=== PATIENT | female | born 1985 | race Caucasian/White ===

== ENCOUNTER → 2016-12-04 | Outpatient (CLI) | payer OTHER ==
[~2016-12-04] MED LIST: ATOM25CA PO; MESA800T6 PO; PRENTAB26 PO
[2016-12-04 16:51] LABS: URINE APPEARANCE CLEAR (CLEAR); URINE BILIRUBIN NEG (NEG); URINE COLOR YELLOW; URINE NITRITE NEG (NEG); URINE SPECIFIC GRAVITY 1.028 (1.000-1.030); UROBILINOGEN NEG (NEG)
[2016-12-04 16:54] LABS: MANUAL MICROSCOPIC REQUIRED? NO; REVIEW REQ? NO
== END | disposition home or self-care (01) ==
LOC: C.LABSPEC 16:17
PROVIDERS: ATTEND Obstetrics & Gynecology
DX: Z34.01 Encounter for supervision of normal first pregnancy, first trimester (principal)

== ENCOUNTER → 2016-12-11 | Outpatient (CLI) | payer OTHER ==
[~2016-12-11] MED LIST changes: +MESA1TAB4 PO; -MESA800T6 PO; +OXYC-57 PO
[2016-12-11 15:34] LABS: BASO % 0.3 %; BASO ABS # 0.03 K/uL (0-0.2); COMPLETE YES; EOS % 0.9 %; IG% 0.6 %; LYMPH % 22.6 %; MEAN CELL VOLUME 86.6 fL (80-100); MEAN CORPUSCULAR HEMOGLOBIN 30.7 pg (25-34); MEAN CORPUSCULAR HGB CONC 35.4 g/dl (32-36); MEAN PLATELET VOLUME 9.2 fL (7.4-10.4); MONO % 7.9 %; NEUT % 67.7 %; PLATELET COUNT 249 K/uL (130-400); RED BLOOD COUNT 4.04 M/uL (4.2-5.4); WHITE BLOOD COUNT 11.49 K/uL (4.8-10.8)
== END | disposition home or self-care (01) ==
LOC: C.LAB1850 14:38
PROVIDERS: ATTEND Obstetrics & Gynecology
DX: Z34.01 Encounter for supervision of normal first pregnancy, first trimester (principal)

== ENCOUNTER → 2016-12-11 | Outpatient (CLI) | payer OTHER ==
[2016-12-15 09:54] LABS: CHLAMYDIA TRACH RNA*** NOT DETECTED (NOT DETECTED); GC (NEIS GONORRHOEAE)RNA** NOT DETECTED (NOT DETECTED)
== END | disposition home or self-care (01) ==
LOC: C.LABSPEC 17:59
PROVIDERS: ATTEND Obstetrics & Gynecology
DX: Z34.01 Encounter for supervision of normal first pregnancy, first trimester (principal)

== ENCOUNTER → 2016-12-12 | Outpatient (CLI) | payer OTHER | END | disposition home or self-care (01) | LOC: C.PAPS 08:46 | PROVIDERS: ATTEND Obstetrics & Gynecology | DX: Z12.4 Encounter for screening for malignant neoplasm of cervix (principal); R87.616 Satisfactory cervical smear but lacking transformation zone ==

== ENCOUNTER → 2017-02-12 | Outpatient (CLI) | payer OTHER ==
[2017-02-12 18:25] LABS: GTGD 50 Grams
== END | disposition home or self-care (01) ==
LOC: C.LAB1850 15:03
PROVIDERS: ATTEND Obstetrics & Gynecology
DX: Z34.02 Encounter for supervision of normal first pregnancy, second trimester (principal)

== ENCOUNTER → 2017-02-21 | Outpatient (CLI) | payer OTHER | END | disposition home or self-care (01) | LOC: C.LAB 08:00 | PROVIDERS: ATTEND Obstetrics & Gynecology | DX: O28.9 Unspecified abnormal findings on antenatal screening of mother (principal) ==

== ENCOUNTER → 2017-04-29 | Outpatient (CLI) | payer OTHER ==
[~2017-04-29] MED LIST changes: -MESA1TAB4 PO; +MESA800T6 PO; -OXYC-57 PO
[2017-04-29 12:10] LABS: URINE APPEARANCE CLEAR (CLEAR); URINE BILIRUBIN NEG (NEG); URINE COLOR YELLOW; URINE EPITHELIAL CELL AUTO >30 /lpf (0-5); URINE NITRITE NEG (NEG); URINE PH 7.5 (4.5-7.5); URINE SPECIFIC GRAVITY 1.006 (1.000-1.030); UROBILINOGEN NEG (NEG)
[2017-04-29 12:15] LABS: HEMATOCRIT 33.6 % (37-47)
[2017-04-29 12:17] LABS: MANUAL MICROSCOPIC REQUIRED? NO; REVIEW REQ? NO
== END | disposition home or self-care (01) ==
LOC: C.LAB1850 09:32
PROVIDERS: ATTEND Obstetrics & Gynecology
DX: Z34.03 Encounter for supervision of normal first pregnancy, third trimester (principal)

== ENCOUNTER → 2017-05-02 | Outpatient (CLI) | payer OTHER | END | disposition home or self-care (01) | LOC: C.LAB 09:00 | PROVIDERS: ATTEND Obstetrics & Gynecology | DX: Z34.03 Encounter for supervision of normal first pregnancy, third trimester (principal) ==

== ENCOUNTER 2017-05-29 17:02 | Outpatient (CLI) | payer OTHER ==
[~2017-05-29] VITALS: Ht 160 cm; Wt 103.6 kg
[~2017-05-29 17:02] MED LIST changes: -PRENTAB26 PO
[2017-05-29] MEDS ORDERED: PRENTAB26 PO (17:23)
[2017-05-29 17:25] VITALS: Ht 160 cm; Wt 103.6 kg
[2017-05-29] MEDS ORDERED: INFLUENZA VIRUS QUAD VACCINE 0.5 ML SYR IM. ONE (17:45)
[2017-05-29] MEDS ORDERED: INFLUENZA ADMINISTRATION CHARGE ONE (17:45)
[2017-05-29 19:21] LABS: URINE APPEARANCE CLOUDY (CLEAR); URINE BILIRUBIN NEG (NEG); URINE COLOR YELLOW; URINE NITRITE NEG (NEG); URINE PH 6.5 (4.5-7.5); URINE SPECIFIC GRAVITY 1.019 (1.000-1.030); UROBILINOGEN NEG (NEG)
[2017-05-29 19:23] LABS: MANUAL MICROSCOPIC REQUIRED? NO; REVIEW REQ? NO
== END 2017-05-29 19:46 | disposition home or self-care (01) ==
LOC: C.OPB 17:02 → C.LD 17:04 → C.OPB 19:46
PROVIDERS: ATTEND Obstetrics & Gynecology
DX: O26.893 Other specified pregnancy related conditions, third trimester (principal); O99.613 Diseases of the digestive system complicating pregnancy, third trimester; K50.90 Crohn's disease, unspecified, without complications; Z3A.32 32 weeks gestation of pregnancy

== ENCOUNTER → 2017-06-24 | Outpatient (CLI) | payer OTHER ==
[~2017-06-24] MED LIST changes: -ATOM25CA PO; -MESA800T6 PO; +PRENTAB26 PO
== END | disposition home or self-care (01) ==
LOC: C.LABSPEC 15:40
PROVIDERS: ATTEND Obstetrics & Gynecology
DX: Z34.03 Encounter for supervision of normal first pregnancy, third trimester (principal); Z3A.00 Weeks of gestation of pregnancy not specified

== ENCOUNTER 2017-07-25 16:13 | Inpatient (IN) | payer OTHER ==
[~2017-07-25] VITALS: Ht 160 cm; Wt 106.8 kg
[2017-07-25 16:33] VITALS: Ht 160 cm; Wt 106.8 kg
[2017-07-25] MEDS ORDERED: MISOPROSTOL 25 MCG TAB ONE (19:11)
[2017-07-25] MEDS ORDERED: LACTATED RINGER'S 1000ML 500 ML IV PRN ×2 (19:16→20:54)
[2017-07-25] MEDS ORDERED: OXYTOCIN 30 UNITS/500ML NSS IV PRN (19:30)
[2017-07-25] MEDS ORDERED: MISOPROSTOL 25 MCG TAB PV ONE (19:30)
[2017-07-25 19:52] LABS: MEAN CELL VOLUME 87.8 fL (80-100); MEAN CORPUSCULAR HEMOGLOBIN 29.8 pg (25-34); MEAN CORPUSCULAR HGB CONC 33.9 g/dl (32-36); MEAN PLATELET VOLUME 9.1 fL (7.4-10.4); PLATELET COUNT 181 K/uL (130-400); RED BLOOD COUNT 3.76 M/uL (4.2-5.4); WHITE BLOOD COUNT 16.64 K/uL (4.8-10.8)
[2017-07-25] MEDS: LACTATED RINGER'S 1000ML 1,000 ML IV PRN ×2 (19:52→20:51)
[2017-07-25] MEDS ORDERED: BUPIVACAINE 0.25% 30 ML VIAL ONE (19:55)
[2017-07-25] MEDS ORDERED: EpHEDrine SULFATE INJ 50 MG/ML AMP ONE (19:56)
[2017-07-25] MEDS ORDERED: FENTANYL 2MCG/ML ROPIV 1.25MG/ML 100ML BAG EPI ONE (19:56)
[2017-07-25] MEDS ORDERED: FENTANYL CITRATE INJ 50 MCG/1 ML 2 ML VIAL ONE (19:56)
[2017-07-25] MEDS ORDERED: NALOXONE HCL INJ 1 MG in SODIUM CHLORIDE 0.9% 1000ML 1,000 ML IV PRN (20:54)
[2017-07-25] MEDS ORDERED: DiphenhydrAMINE HCL 50 MG/ML VIAL IV PRN (21:00)
[2017-07-25] MEDS ORDERED: PROMETHAZINE HCL INJ 6.25 MG in SODIUM CHLORIDE 0.9% 50ML 50 ML IV PRN (21:00)
[2017-07-25] MEDS ORDERED: NALOXONE HCL INJ 0.4 MG/1 ML VIAL/CARP IV PRN (21:00)
[2017-07-25] MEDS ORDERED: EpHEDrine SULFATE INJ 50 MG/ML AMP IV PRN (21:00)
[2017-07-25] MEDS ORDERED: NALBUPHINE HCL INJ 10 MG/ML AMP IV PRN (21:00)
[2017-07-26] MEDS: ONDANSETRON INJ 2 MG/ML 2 ML VIAL IV PRN ×2 (01:15→13:13)
[2017-07-26] MEDS: FENTANYL 2MCG/ML ROPIV 1.25MG/ML 100ML BAG EPI PRN ×3 (02:25→06:46)
[2017-07-26] MEDS: LACTATED RINGER'S 1000ML 1,000 ML IV SCH ×2 (05:54→10:49)
[2017-07-26] MEDS ORDERED: EpHEDrine SULFATE INJ 50 MG/ML AMP ONE (07:30)
[2017-07-26] MEDS ORDERED: BUPIVACAINE 0.25% 30 ML VIAL ONE ×2 (07:30→13:20)
[2017-07-26] MEDS ORDERED: FENTANYL 2MCG/ML ROPIV 1.25MG/ML 100ML BAG EPI ONE (07:31)
[2017-07-26] MEDS ORDERED: FENTANYL CITRATE INJ 50 MCG/1 ML 2 ML VIAL ONE ×3 (07:31→14:03)
[2017-07-26] MEDS ORDERED: NALOXONE HCL INJ 1 MG in SODIUM CHLORIDE 0.9% 1000ML 1,000 ML IV PRN ×2 (09:11→15:11)
[2017-07-26] MEDS ORDERED: LACTATED RINGER'S 1000ML 500 ML IV PRN ×2 (09:11→15:11)
[2017-07-26] MEDS ORDERED: NALBUPHINE HCL INJ 10 MG/ML AMP IV PRN ×2 (09:15→15:15)
[2017-07-26] MEDS ORDERED: EpHEDrine SULFATE INJ 50 MG/ML AMP IV PRN ×2 (09:15→15:15)
[2017-07-26] MEDS ORDERED: FENTANYL 2MCG/ML ROPIV 1.25MG/ML 100ML BAG EPI PRN (09:15)
[2017-07-26] MEDS ORDERED: DiphenhydrAMINE HCL 50 MG/ML VIAL IV PRN ×3 (09:15→15:15)
[2017-07-26] MEDS ORDERED: ONDANSETRON INJ 2 MG/ML 2 ML VIAL IV PRN ×3 (09:15→15:15)
[2017-07-26] MEDS ORDERED: NALOXONE HCL INJ 0.4 MG/1 ML VIAL/CARP IV PRN (09:15)
[2017-07-26] MEDS ORDERED: CITRIC ACID/SODIUM CITRATE 15 ML UDC ONE (13:28)
[2017-07-26] MEDS ORDERED: CITRIC ACID/SODIUM CITRATE 15 ML UDC PO ONE (13:30)
[2017-07-26] MEDS ORDERED: CEFAZOLIN IV 3,000 MG in SYRINGE 0 ML IV SCH (13:30)
[2017-07-26] MEDS ORDERED: MoRPHine SULFATE PF 1 MG/ML 10 ML AMP/VIAL ONE (14:03)
[2017-07-26] MEDS ORDERED: OXYTOCIN INJ 10 UNITS/ML VIAL ONE (14:50)
[2017-07-26] MEDS ORDERED: KETOROLAC TROMETHAMINE 30 MG/ML VIAL ONE (14:50)
[2017-07-26] MEDS ORDERED: ONDANSETRON INJ 2 MG/ML 2 ML VIAL ONE (14:50)
[2017-07-26] MEDS ORDERED: LACTATED RINGER'S 1000ML 1,000 ML IV SCH (14:59)
[2017-07-26] MEDS ORDERED: OXYTOCIN INJ 30 UNITS in LACTATED RINGER'S 1000ML 1,000 ML IV SCH (14:59)
[2017-07-26] MEDS ORDERED: SUPERCREAM 0.870 % 15GM JAR EXT PRN (15:00)
[2017-07-26] MEDS ORDERED: HYDROCORTISONE ACETATE 25 MG SUPP PR PRN (15:00)
[2017-07-26] MEDS ORDERED: MEPERIDINE HCL 50 MG/ML CARP IV PRN ×2 (15:00)
[2017-07-26] MEDS ORDERED: OXYCODONE/ACETAMINOPHEN 5-325 TAB PO PRN (15:00)
[2017-07-26] MEDS ORDERED: DIPHTHERIA/TETANUS/PERTUSSIS 0.5 ML SYR/VIAL IM. ONE (15:00)
[2017-07-26] MEDS ORDERED: KETOROLAC TROMETHAMINE 30 MG/ML VIAL IV. PRN ×2 (15:00→15:15)
[2017-07-26] MEDS ORDERED: PROMETHAZINE HCL INJ 25 MG in SODIUM CHLORIDE 0.9% 50ML 50 ML IV PRN ×2 (15:00→15:15)
[2017-07-26] MEDS ORDERED: BENZOCAINE 20% AER SPR 82.5 GM CAN EXT PRN (15:00)
[2017-07-26] MEDS ORDERED: LANOLIN OINT EXT PRN ×2 (15:00)
--- NOTE | 2017-07-26 15:02 | [facility] Post Operative Brief Note ---
Immediate Operative Summary Operative Date Jul 26, 2017. Pre-Operative Diagnosis Primary Caesarean Section Post-Operative Diagnosis Primary Caesarean Section Procedure(s) Performed Primary Caesarean Section for living female child at [address] Chanel Radio Technician Surgeon(s) Alee Mcdowell RN Estimated Blood Loss 600 ml Findings thick meconium. Normal tubes/ovaries. Diminutive fibroids. Specimens Placenta- exam arterial/venous cord gases cord blood Complication(s) None Disposition L&D
[2017-07-26] MEDS ORDERED: NALOXONE HCL INJ 0.08 MG in SYRINGE 1.8 ML IV PRN (15:11)
[2017-07-26] MEDS ORDERED: SODIUM CHLORIDE 0.9% 1000ML 1,000 ML IV PRN (15:11)
--- NOTE | 2017-07-26 15:12 | Anesthesia Procedure Note ---
Anesthesia Epidural Removal Nt Date & Time Jul 26, 2017 at 15:12 Vital Signs Pain Intensity: 5.0 Notes Mental Status: alert / awake / arousable, participated in evaluation Nausea / Vomiting: adequately controlled Pain: adequately controlled Airway Patency, RR, SpO2: stable & adequate BP & HR: stable & adequate Hydration State: stable & adequate Neuraxial Anesthesia: was administered Anesthetic Complications: no major complications apparent, pt satisfied with anesthetic care Epidural: removed without complications, with tip intact Notes: Epidural pulled in OR to place SAB for surgical anesthetic
[2017-07-26] MEDS ORDERED: MEPERIDINE HCL 25 MG/ML CARP IV PRN (15:15)
[2017-07-26] MEDS ORDERED: NO NARCOTICS OR SEDATIVES SCH (15:15)
[2017-07-26] MEDS ORDERED: NALOXONE HCL 0.4 MG/1 ML VIAL/CARP IV PRN (15:15)
[2017-07-26] MEDS ORDERED: MoRPHine SULFATE PF 1 MG/ML 10 ML AMP/VIAL EPI PRN (15:15)
[2017-07-26] MEDS ORDERED: MoRPHine SULFATE 2 MG/ML CARP IV PRN (15:15)
--- NOTE | 2017-07-26 15:43 | Anesthesiology Progress Note ---
Anesthesia Post Op Note Date & Time Jul 26, 2017 at 15:42 Vital Signs Pain Intensity: 5.0 Notes Mental Status: alert / awake / arousable, participated in evaluation Pt Amnestic to Procedure: Yes Nausea / Vomiting: adequately controlled Pain: adequately controlled Airway Patency, RR, SpO2: stable & adequate BP & HR: stable & adequate Hydration State: stable & adequate Neuraxial Anesthesia: was administered, sensory block is resolving Anesthetic Complications: no major complications apparent
--- NOTE | 2017-07-26 16:57 | OPERATIVE REPORT ---
DATE OF OPERATION: 07/26/2017 PREOPERATIVE DIAGNOSES: 1. Frances intrauterine at term. 2. heart tones category 2. 3. Inadequate maternal anesthesia after multiple epidurals. 4. Maternal request for section. POSTOPERATIVE DIAGNOSES: Same. PROCEDURE: Primary low transverse section for a living female child at 1431. SURGEON: Faye Chanel MD SKULL SPLITTER: Alee ____, RN ESTIMATED BLOOD LOSS: 600. FINDINGS: Thick meconium. Normal tubes and ovaries and diminutive uterine fibroids. SPECIMENS: Placenta for exam, cord gases, and cord blood. COMPLICATIONS: None. DISPOSITION: Labor and Delivery in stable condition. DESCRIPTION: Valentina is a 32-year-old G1, P0 who presented at 40 weeks and 6/7 with rupture of membranes and minimal cervical dilation, mild cramping. She was diagnosed with premature rupture of membranes. She was managed with Cytotec for cervical ripening followed by Pitocin for labor. Although her dilation was initially barely fingertip, Valentina was already in significant pain, she requested an epidural shortly thereafter. Before she began Pitocin, she already had her first epidural but it was not working well for her. After the Pitocin had gotten to a level of 9, she really was not able to tolerate the pain at all. A second epidural was placed. This worked better for some time; however, it too ultimately was insufficient to relieve her discomfort. She had reached 5-6 cm with intermittent heart tone category 2 and she was at this point begging for a section. We had a conversation at the bedside between myself, patient and her about the risks and benefits of versus proceeding with an induction of labor as well as the fact that additional anesthesia could be provided, if she wished to continue a trial of labor. Despite this, Valentina continued to request section quite firmly. Consents were signed and she was brought to the operating room. She was placed on the table in the supine position with a leftward tilt, prepped and draped in standard sterile fashion and a hard time-out was taken prior to proceeding. A Pfannenstiel incision was created and carried down sharply through the subcutaneous tissue to the fascia which was incised and extended laterally using Solo scissors. The fascia was elevated using Lisa clamps and both sharply and bluntly dissected off the underlying rectus with Bovie electrocautery used to address bleeding as it occurred. The rectus muscles were naturally , this was bluntly extended and the peritoneum was entered bluntly with the surgeon's finger. This opening was then extended using a combination of sharp and blunt dissection of the peritoneum. A bladder blade was placed, a bladder flap was created and final entry to the uterus was then made in a transverse manner initially with a scalpel and ultimately with the surgeon's finger to rupture the amnion. Thick pea soup meconium was encountered immediately upon rupture. Hysterotomy was extended laterally and then the infant's head was elevated to the hysterotomy and the was delivered using mild fundal pressure. The cord was doubly clamped and cut and the infant was taken to the warmer. The placenta was manually extracted and it was intact with a 3-vessel cord. The cord was suctioned for cord gas collection. Cord blood was collected. The uterus was then exteriorized and cleared of all remaining membrane and debris using a dry lap sponge. The hysterotomy was closed in 2 layers using 0 Vicryl in a running-locked fashion with an imbricating nonlocked layer. Two [id number] 0 Vicryl sutures were used to address bleeding along the inferior edge of the suture line. Once this was done, hemostasis had been achieved, the uterus was examined and found to have diminutive subcentimeter fibroids peppering its surface and the tubes and ovaries were noted to be normal bilaterally. The posterior gutter was cleared of all clot and debris and copiously irrigated to remove any meconium that may have spilled into the maternal abdomen. The gutters were cleared of clot and debris. The hysterotomy was again examined after the uterus had been reinternalized and left off pressure and remained hemostatic. The sponge count was then instituted and once this was correct, the fascia was then closed using 1 Vicryl in a running nonlocked manner. At the completion of repair, the fascia was examined and found to be free of defect. The subcutaneous tissue was copiously irrigated and then closed using 3-0 chromic with a 4-0 Monocryl being used to reapproximate the skin edges and a Dermabond dressing was then applied. The Stephens was noted to be draining clear yellow urine, at the time the patient was transferred back to her recovery room in Labor and Delivery. I attest to the content of the Intraoperative Record and any orders documented therein. Any exception s are noted below.
[2017-07-26] MEDS: SIMETHICONE 80 MG CHEW PO SCH ×2 (17:00→19:46)
[2017-07-26 19:45] VITALS: BP 118/64; PULSE 85; TEMP 36.8; O2SAT 97
[2017-07-26] MEDS: DOCUSATE SODIUM 100 MG CAP PO SCH (19:47)
[2017-07-26 20:45] VITALS: O2SAT 97
[2017-07-26 21:45] VITALS: O2SAT 98
[2017-07-26 22:45] VITALS: O2SAT 97
[2017-07-27] VITALS (15 sets, daily range): BP systolic 97–115; BP diastolic 50–69; PULSE 62–90; TEMP 36.4–37; O2SAT 96–98
[2017-07-27] MEDS: LACTATED RINGER'S 1000ML 1,000 ML IV SCH (00:14)
--- NOTE | 2017-07-27 07:11 | Progress Note ---
Subjective Jul 27, 2017. Subjective conversation w/ patient, physical exam, chart review, lab review Ambulation: ambulating normally Voiding: ortega catheter in place Passing Gas: Yes Diet Tolerance: Regular Diet Lochia: Moderate Feeding Type: Breast Feeding Pain: controlled Review of Systems Constitutional: No fever, No chills Cardiac: No chest pain Abdomen: No nausea, No vomiting Objective Vital Signs Date Time Temp Pulse Resp B/P (MAP) Pulse Ox O2 Delivery O2 Flow Rate FiO2 07/27/17 06:20 18 97 07/27/17 06:00 18 97 07/27/17 04:45 18 97 07/27/17 04:45 36.9 79 18 100/51 (67) 97 Room Air 07/27/17 04:00 18 96 07/27/17 03:00 18 98 07/27/17 02:00 18 97 07/27/17 01:00 18 97 07/27/17 00:00 18 96 07/27/17 00:00 37.0 77 18 97/50 (66) 96 Room Air 07/27/17 00:00 96 Room Air 07/26/17 22:45 18 97 07/26/17 21:45 18 98 07/26/17 20:45 18 97 07/26/17 19:45 18 97 07/26/17 19:45 36.8 85 18 118/64 (82) 97 Room Air 07/26/17 19:45 97 Room Air Physical Exam General Appearance: WELL-APPEARING, WD/WN, NO APPARENT DISTRESS Respiratory/Chest: lungs clear, normal breath sounds, no respiratory distress Cardiovascular: regular rate, rhythm, no gallop, no JVD Abdomen: normal bowel sounds, soft Fundus: Firm, Tender (appropriately tender), Relation to Umbilicus (U at level of Umb) Incision Description: Clean, Dry & Intact Extremities: normal range of motion, non-tender, normal inspection, + pedal edema (1+ edema LE b/l) Laboratory Results Last 24 Hours Test 07/27/17 06:54 Assessment and Plan Problem List Post-Op Day#: 1 Continue Routine Care: A - / GBS - / RI Hbg 11.2, today pending Pt's pain is controlled Encourage ambulation, , continue motrin/tylenol Continue routine post care JOSHUA BUSTILLOS PGY 1 FMR Resident Physician Supervision Note: I interviewed and examined the patient. Discussed with Dr. Bustillos and agree with findings and plan as documented in the note. Any exceptions or clarifications are listed here: [None] Documented By: Faye Chanel Resident Tracking Resident Involvement: Resident Care Provided Care Provided: OB Delivery
[2017-07-27 07:12] LABS: BASO % 0.2 %; BASO ABS # 0.04 K/uL (0-0.2); COMPLETE YES; EOS % 0.4 %; HEMATOCRIT 27.8 % (37-47); IG% 1.1 %; LYMPH % 11.7 %; MEAN CORPUSCULAR HEMOGLOBIN 29.4 pg (25-34); MEAN CORPUSCULAR HGB CONC 33.5 g/dl (32-36); MEAN PLATELET VOLUME 8.6 fL (7.4-10.4); MONO % 6.3 %; NEUT % 80.3 %; PLATELET COUNT 170 K/uL (130-400); RED BLOOD COUNT 3.16 M/uL (4.2-5.4); WHITE BLOOD COUNT 17.03 K/uL (4.8-10.8)
[2017-07-27] MEDS ORDERED: DC INTRASPINAL MORPHINE ONE (08:00)
[2017-07-27] MEDS: PRENATAL VITAMIN TAB PO SCH (08:21)
[2017-07-27] MEDS: SIMETHICONE 80 MG CHEW PO SCH ×4 (08:21→19:28)
[2017-07-27] MEDS: DOCUSATE SODIUM 100 MG CAP PO SCH ×2 (08:21→19:28)
[2017-07-27] MEDS: IBUPROFEN 600 MG TAB PO PRN ×2 (08:24→19:28)
[2017-07-27] MEDS: OXYCODONE/ACETAMINOPHEN 5-325 TAB PO PRN ×2 (12:44→19:29)
[2017-07-28] MEDS: IBUPROFEN 600 MG TAB PO PRN ×3 (02:43→19:35)
[2017-07-28] MEDS: OXYCODONE/ACETAMINOPHEN 5-325 TAB PO PRN ×3 (02:44→19:37)
[2017-07-28 07:30] VITALS: BP 101/59; PULSE 62; TEMP 36.8; O2SAT 98
--- NOTE | 2017-07-28 07:52 | Progress Note ---
Subjective Jul 28, 2017. Subjective conversation w/ patient, physical exam, chart review, lab review Ambulation: ambulating normally Voiding: no voiding problems, ortega catheter in place Passing Gas: Yes Diet Tolerance: Regular Diet Lochia: Moderate Feeding Type: Breast Feeding Pain: controlled Review of Systems Respiratory: No shortness of breath, No dyspnea on exertion Cardiac: No chest pain Abdomen: No nausea, No vomiting Female : No dysuria Objective Vital Signs Date Time Temp Pulse Resp B/P (MAP) Pulse Ox O2 Delivery O2 Flow Rate FiO2 07/27/17 23:35 36.6 62 16 109/55 (73) 98 Room Air 07/27/17 23:35 98 Room Air 07/27/17 16:20 97 Room Air 07/27/17 16:20 36.6 81 18 109/66 (80) 97 Room Air 07/27/17 12:30 36.9 89 18 115/69 (84) 96 Room Air 07/27/17 12:25 36.4 90 20 104/53 (70) 97 Room Air 07/27/17 08:25 36.6 79 18 107/64 (78) 98 Room Air 07/27/17 08:25 98 Room Air 07/27/17 08:25 18 98 07/27/17 07:52 36.4 76 16 109/54 (72) 98 Room Air Physical Exam General Appearance: WELL-APPEARING, WD/WN, NO APPARENT DISTRESS Respiratory/Chest: lungs clear, normal breath sounds, no respiratory distress Cardiovascular: regular rate, rhythm, no gallop, no murmur Abdomen: normal bowel sounds, soft Fundus: Firm, Tender (appropriately tender), Relation to Umbilicus (1 below U) Incision Description: Clean, Dry & Intact Extremities: non-tender, normal inspection, + pertinent finding (trace edema) Assessment and Plan Post-Op Day#: 2 Continue Routine Care: A - / GBS - / RI Hbg 11.2, yesterday 9.3. Stable. Pt's pain is controlled Encourage ambulation, , continue motrin/tylenol Continue routine post care JOSHUA BUSTILLOS PGY 1 FMR Resident Physician Supervision Note: I was present with Dr. Bustillos during the history and exam. I discussed the case with the resident and agree with the findings and plan as documented in the note. Any exceptions or clarifications are listed here: POD#2, doing well. Continue routine postop care. Documented By: Elizabeth Santos Resident Tracking Resident Involvement: Resident Care Provided Care Provided: OB Delivery
[2017-07-28] MEDS: DOCUSATE SODIUM 100 MG CAP PO SCH ×2 (08:38→19:37)
[2017-07-28] MEDS: PRENATAL VITAMIN TAB PO SCH (08:38)
[2017-07-28] MEDS: SIMETHICONE 80 MG CHEW PO SCH ×4 (08:39→19:37)
[2017-07-28 16:00] VITALS: PULSE 75; TEMP 36.9; O2SAT 99
[2017-07-29] VITALS: BP 104/55; PULSE 75; TEMP 36.6; O2SAT 97
[2017-07-29] MEDS: OXYCODONE/ACETAMINOPHEN 5-325 TAB PO PRN (05:12)
[2017-07-29] MEDS: IBUPROFEN 600 MG TAB PO PRN ×2 (05:13→10:48)
--- NOTE | 2017-07-29 07:14 | Progress Note ---
Subjective Jul 29, 2017. Subjective conversation w/ patient, physical exam, chart review, lab review Ambulation: ambulating normally Voiding: no voiding problems Passing Gas: Yes Diet Tolerance: Regular Diet Lochia: Moderate Feeding Type: Breast Feeding Pain: controlled Review of Systems Respiratory: No shortness of breath Abdomen: No nausea, No vomiting Female : No dysuria Objective Vital Signs Date Time Temp Pulse Resp B/P (MAP) Pulse Ox O2 Delivery O2 Flow Rate FiO2 07/29/17 00:00 36.6 75 16 104/55 (71) 97 Room Air 07/29/17 00:00 97 Room Air 07/28/17 16:00 36.9 75 18 Room Air 07/28/17 16:00 99 Room Air 07/28/17 07:30 36.8 62 18 101/59 (73) 98 Room Air 07/28/17 07:30 Room Air Physical Exam General Appearance: WELL-APPEARING, WD/WN, NO APPARENT DISTRESS Respiratory/Chest: lungs clear, normal breath sounds, no respiratory distress Cardiovascular: regular rate, rhythm, no gallop Abdomen: normal bowel sounds, soft Fundus: Firm, Tender (appropriately tender), Relation to Umbilicus (1 below U) Extremities: non-tender, normal inspection, no calf tenderness Assessment and Plan Problem List Medical Problems: (1) Left-sided trigeminal neuralgia Status: Acute Post-Op Day#: 3 Continue Routine Care: A - / GBS - / RI Hbg 11.2, and 9.3. Stable. Pt's pain is controlled Encourage ambulation, , continue motrin/tylenol Continue routine post care. Anticipate DC today, reviewed DC instructions. JOSHUA BUSTILLOS PGY 1 FMR Resident Physician Supervision Note: I interviewed and examined the patient. Discussed with Dr. Bustillos and agree with findings and plan as documented in the note. Any exceptions or clarifications are listed here: Doing well. Plan discharge. Instructions given. Documented By: Salena Mccyo Resident Tracking Resident Involvement: Resident Care Provided Care Provided: OB Delivery
--- NOTE | 2017-07-29 07:27 | Discharge Instructions ---
Discharge Instructions Date of Service Jul 29, 2017. Admission Reason for Admission: PROM Discharge Discharge Diagnosis / Problem: Delivery Section Discharge Goals Goal(s): Routine recovery after Medications Continue Dispensed Medications: supercream, dermaplast, tucks, lansinoh Activity Recommendations Activity Limitations: per Instructions/Follow-up section . Instructions / Follow-Up Instructions / Follow-Up ACTIVITY RECOMMENDATIONS: * Gradual return to full activity over the next 2-3 weeks. * No lifting - nothing heavier than baby over the next 2-3 weeks. * Do not engage in vigorous exercise, sexual activity or sports until cleared by your physician. * Do not drive or operate any motorized equipment until cleared by your physician. * You may shower/bathe daily. MEDICATIONS: For discomfort or pain, you may use Acetaminophen (Tylenol), Ibuprofen (Advil), or Naproxen (Aleve) following the package directions. For constipation you may use Colace following the package directions. BREAST CARE: If you are not breast feeding: * Wear a supportive bra 24 hours a day for one to two weeks. * Avoid stimulating your breasts and nipples as much as possible during the first few weeks after delivery. * When taking a shower, have the warm water hit your back, not breasts. * When your breasts feel full, apply ice packs. Usually three to four times a day helps ease the discomfort. * Take a mild pain medication (Tylenol / Motrin) when you are uncomfortable. If breast feeding: * Use breast milk to lubricate nipples. Lansinoh cream may be used for sore nipples. You do not need to remove cream prior to breast feeding. If using a different brand of cream, check the label for directions regarding removal of cream prior to nursing. * Wear a supportive bra. * If having problems with breasts or breast feeding, call a quantitative consultant or your health care provider. SPECIAL CARE INSTRUCTIONS: When you are discharged from the hospital, it is important for you to follow the instructions listed below: * During the first week at home, you should be able to care for yourself and your baby. In addition, the usual light household activities are encouraged. * Limit your activities to the way you feel. Do not try to clean the house or move furniture. Be sensible. * If you actively engage in sports and have done so up until the time of your delivery, you may resume these activities as soon as you feel able. This may take up to one month or even longer. Use good judgment. * Continue to take your vitamins for at least six weeks after the of your baby. * Your diet need not be limited unless you were on a special diet before your delivery. Breast-feeding mothers need around 2500 calories per day and at least 64-80 ounces of fluid per day (8 to 10 glasses). * You should eat foods from the four major food groups. Crash diets or fad diets are to be avoided. Eating lean meats, fresh fruits and vegetables, low-fat dairy products, high fiber foods and a regular exercise program, will help you get back to your pre- weight without putting your health at risk. * Constipation is sometimes a problem after delivery. Take a mild laxative as needed. If breast feeding, Milk of Magnesia is acceptable to use. You may use a suppository or Fleets enema. * A daily shower or tub bath is suggested. Wash incision daily with warm soapy water and pat dry. It doesn't need to be covered unless drainage is present. * A bloody vaginal discharge will usually continue until around four weeks . A small amount of bleeding may continue for as long as six weeks. Vaginal discharge changes from the bright red bleeding after delivery to pink then brownish and finally yellowish-pink before becoming white and disappearing. * Bleeding may increase with activity. Your first period may come in 4-8 weeks. If you are breast feeding, your period may be delayed even longer. * [place] (sex) can begin whenever both you and your partner feel comfortable and do not have any form of genital infection. It is recommended that you wait at least six weeks for internal and external healing to occur. If you have questions, please talk to your health care practitioner. A condom should be used to prevent infection and . * Foreplay, gentle intercourse and lubrication is very important the first several times to prevent pain. A water-based lubricant such as K-Y jelly or Astroglide may be used. * If you have RH negative blood and your baby is RH positive, you will receive RHOGAM by injection prior to discharge. The nurse will give you a card to keep with you that has the date and place that you received RHOGAM after delivery. * During your care, you had a Rubella screen done to check for the presence of rubella antibodies in your blood. If your test was negative, you will receive a Rubella vaccine prior to discharge. This vaccine may cause a fever, soreness at the injection site and flu-like symptoms. If these symptoms persist, notify your health care practitioner. is not advised for one month after a Rubella vaccine. * Verbalizes understanding of car seat law as reviewed with patient nursing. * Car Seat hand-out given and reviewed with patient by nursing. * Shaken baby information reviewed with patient by nursing. Call you doctor if: * Heavy bleeding (saturating several pads an hour) or passing clots the size of your fist. * A fever >101 degrees F (38.3 degrees C) on two occasions four hours apart and /or chills. * Unusual pain in the pelvic or vaginal areas. * Call the doctor for any increased redness, drainage or swelling around the incision and any pain unrelieved by prescribed pain medication. * "Baby Blues" lasting longer than two weeks. If you have any questions or concerns, call your health care practitioner at . FOLLOW UP VISIT: * Please call the office at to schedule a 6 week examination. It is important you keep this appointment. It is important for you to make arrangements for either yearly or twice yearly check-ups thereafter. Current Hospital Diet Patient's current hospital diet: Regular OB Diet Discharge Diet Recommended Diet: Regular Diet Procedures Procedures Performed: Primary Caesarean Section for living female child at 1431 Pending Studies Studies pending at discharge: no Medical Emergencies . Who to Call and When: Medical Emergencies: If at any time you feel your situation is an emergency, please call [phone] immediately. . Non-Emergent Contact Non-Emergency issues call your: Primary Care Provider . . "Provider Documentation" section prepared by Lorie Bustillos. . VTE Core Measure Inpt VTE Proph given/why not?: SCD's
[2017-07-29 07:35] VITALS: BP 115/64; PULSE 59; TEMP 36.3
[2017-07-29] MEDS ORDERED: OXYC-57 PO (07:35)
[2017-07-29] MEDS: DOCUSATE SODIUM 100 MG CAP PO SCH (08:08)
[2017-07-29] MEDS: SIMETHICONE 80 MG CHEW PO SCH (08:08)
[2017-07-29] MEDS: PRENATAL VITAMIN TAB PO SCH (08:08)
[2017-07-29 10:55] VITALS: BP_DIAS 64; PULSE 59; TEMP 36.3
== END 2017-07-29 11:30 | disposition home or self-care (01) | DRG 765 ==
LOC: C.LD 16:13 → C.OPB 16:13 → C.LD 19:17 → C.OBG 07-26 19:33
PROVIDERS: ADMIT Obstetrics & Gynecology; ATTEND Obstetrics & Gynecology
PROC: 10D00Z1 Extraction of Products of Conception, Low, Open Approach (ICD-10-PCS; principal; 2017-07-26 13:47)
DX: O26.893 Other specified pregnancy related conditions, third trimester (principal); O36.0130 Maternal care for anti-D [Rh] antibodies, third trimester, not applicable or unspecified; K50.90 Crohn's disease, unspecified, without complications; O42.92 Full-term premature rupture of membranes, unspecified as to length of time between rupture and onset of labor; O77.0 Labor and delivery complicated by meconium in amniotic fluid; O99.62 Diseases of the digestive system complicating childbirth; Z3A.40 40 weeks gestation of pregnancy; Z37.0 Single live birth

== ENCOUNTER 2021-09-20 07:30 | Inpatient (IN) ==
--- NOTE | 2021-09-12 12:30 | Anesthesiology Consultation ---
Date of Service September 12, 2021 Assessment & Plan (1) Encounter for pre-operative examination: Chart Review Chart Review: entry engineer initiated Per nursing assessment 09/12/2021, patient denies any recent travel. 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 No known Covid infection in the past 90 days. Patient is fully vaccinated for Covid. No known Covid positive exposures or Covid related symptoms. Preop Covid testing scheduled 09/18/21= will await results History Surgery Operation Date: 09/20/21 07:30 Proposed Procedures p Section in LD (Delivery of Baby through abdominal incision) with - Josey Gifford MD, FACOG s Post Tubal Ligation Labor & Deliv - Josey Gifford MD, FACOG Height/Weight Height: 5 ft 4 in Weight: 104.326 kg Allergies Allergy/AdvReac Type Severity Reaction Status Date / Time No Known Allergies Allergy Verified 09/12/21 12:08 Medications Home Medications Medication Instructions Recorded Confirmed Last Taken prenat.vits,neal,pce-qjyn-elexv 1 tab PO HS 02/07/21 09/12/21 04/27/21 ([facility]) breast pump #1 ea 07/08/21 09/03/21 Unknown Past Medical History Medical History (Updated 09/12/21 @ 12:32 by Odessa Hampton PA-C) Crohn's disease HX-IN REMISSION Past Family History Family History Brother Dystonia Father Factor V Leiden mutation Stroke Mother Multiple sclerosis Past Surgical History Surgical History (Updated 09/12/21 @ 12:32 by Odessa Hampton PA-C) History of knee surgery REMOVAL CYST History of surgical removal of pilonidal cyst S/P section S/P tonsillectomy S/P wisdom tooth extraction Social History Smoking Status: Never smoker Do You Dip or Chew Tobacco: No Hx Alcohol Use: No Hx Substance Use: No Testing Electrocardiogram Date: 04/28/21 Findings: + NSR @ (67bpm) Low voltage QRS. Cannot rule out anterior infarct, age undetermined (Dr. Madera aware)
--- NOTE | 2021-09-19 22:14 | History & Physical Report ---
Date of Service September 19, 2021 Assessment & Plan (1) Previous delivery affecting , antepartum: Plan: IUP at 39 weeks presents for repeat section and bilateral tubal ligation. The procedures and their risks were reviewed at length and all of her questions were answered to her satisfaction and she is willing to proceed. History of Present Illness Primary Care Provider: Mikey Norton MD Patient is a white female EDC 09/23/21 who presents at 39+ weeks for repeat section. Prior section was done for both & maternal intolerance of labor. She is requesting repeat section with bilateral tubal ligation because of unwanted fertility and multiparity. is complicated by history of Crohns Disease - currently not on any meds. Allergies Allergy/AdvReac Type Severity Reaction Status Date / Time No Known Allergies Allergy Verified 09/19/21 15:37 Home Medications Medication Instructions Recorded Confirmed Type prenat.vits,neal,xsi-skej-btbhe 1 tab PO HS 02/07/21 09/19/21 History ([facility]) breast pump #1 ea 07/08/21 09/19/21 Rx Patient History Medical History (Updated 09/12/21 @ 12:32 by Odessa Hampton PA-C) Crohn's disease HX-IN REMISSION Surgical History (Updated 09/12/21 @ 12:32 by Odessa Hampton PA-C) History of knee surgery REMOVAL CYST History of surgical removal of pilonidal cyst S/P section S/P tonsillectomy S/P wisdom tooth extraction Family History Brother Dystonia Father Factor V Leiden mutation Stroke Mother Multiple sclerosis Social History (Updated 09/12/21 @ 12:17 by Mami Butler RN) Smoking Status: Never smoker Second Hand Exposure: No; Hx Alcohol Use: No Hx Substance Use: No Preferred Language: Swedish Communication Ability: Effective Women'S Studies Professor Required: No Beliefs That Will Affect Care: None marital status: marital status details: Steven (28) [phone] Current Living Situation: Spouse and Family Current Living Situation Comment: lives with spouse and daughter, no pets. 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
[2021-09-20] MEDS ORDERED: LACTATED RINGER'S 1,000 ML IV SCH ×2 (10:45→14:30)
[2021-09-20] MEDS ORDERED: CITRIC ACID/SODIUM CITRATE 15 ML UDC PO STA (11:02)
[2021-09-20] MEDS ORDERED: fentaNYL citrate 100 MCG/2 ML VIAL ONE (11:10)
[2021-09-20] MEDS ORDERED: MoRPHine SULFATE PF 1 MG/ML 10 ML AMP/VIAL ONE (11:10)
[2021-09-20 11:27] LABS: Basophils # (auto) 0.03 K/uL (0-0.2); Basophils % (auto) 0.3 %; Eosinophils # (auto) 0.08 K/uL (0-0.5); Eosinophils % (auto) 0.7 %; Hematocrit (blood only) 34.4 % (37-47); Hemoglobin 11.3 g/dL (12.0-16.0); Immature Granulocytes # (auto) 0.15 K/uL (0.00-0.02); Immature Granulocytes % (auto) 1.3 %; Lymphocytes # (auto) 2.19 K/uL (1.2-3.4); Lymphocytes % (auto) 19.3 %; Mean Corpuscular Hemoglobin 29.2 pg (25-34); Mean Corpuscular Hgb Conc 32.8 g/dL (32-36); Mean Corpuscular Volume 88.9 fL (80-100); Mean Platelet Volume 9.5 fL (7.4-10.4); Monocytes # (auto) 0.76 K/uL (0.11-0.59); Monocytes % (auto) 6.7 %; Neutrophils # (auto) 8.15 K/uL (1.4-6.5); Neutrophils % (auto) 71.7 %; Platelet Count 196 K/uL (130-400); RDW Coefficient of Variation 14.5 % (11.5-14.5); RDW Standard Deviation 47.3 fL (36.4-46.3); Red Blood Count 3.87 M/uL (4.2-5.4); White Blood Count 11.36 K/uL (4.8-10.8)
[2021-09-20] MEDS ORDERED: OXYTOCIN 10 UNITS/ML 10ML VIAL ONE (12:54)
[2021-09-20] MEDS ORDERED: PHENYLEPHRINE 100MCG/ML 5ML SYR ONE (12:54)
[2021-09-20] MEDS ORDERED: ONDANSETRON INJ 2 MG/ML 2 ML VIAL ONE (12:54)
[2021-09-20] MEDS ORDERED: ePHEDrine sulfate 50 MG/ML SYR ONE (13:28)
[2021-09-20] MEDS ORDERED: SODIUM CHLORIDE 0.9% INJ 10 ML VIAL ONE (13:37)
[2021-09-20] MEDS ORDERED: ONDANSETRON INJ 2 MG/ML 2 ML VIAL IV PRN ×2 (14:18→14:32)
[2021-09-20] MEDS ORDERED: SUPERCREAM 0.870% 15 GM JAR EXT PRN (14:18)
[2021-09-20] MEDS ORDERED: DIPHTHERIA/TETANUS/PERTUSSIS 0.5 ML SYR/VIAL IM ONE (14:18)
[2021-09-20] MEDS ORDERED: MAGNESIUM HYDROXIDE SUSP 30 ML UDC PO PRN (14:18)
[2021-09-20] MEDS ORDERED: HYDROCORTISONE ACETATE 25 MG SUPP PR PRN (14:18)
[2021-09-20] MEDS ORDERED: SENNA 8.6 MG TAB PO PRN (14:18)
[2021-09-20] MEDS ORDERED: diphenhydrAMINE Capsule 25 MG CAP PO PRN (14:18)
[2021-09-20] MEDS ORDERED: BENZOCAINE 20% AER SPR 82.5 GM CAN EXT PRN (14:18)
[2021-09-20] MEDS ORDERED: MoRPHine SULFATE PF 1 MG/ML 10 ML AMP/VIAL INT SPINAL ONE (14:32)
[2021-09-20] MEDS ORDERED: diphenhydrAMINE 50 MG/ML VIAL IV PRN (14:32)
[2021-09-20] MEDS ORDERED: MoRPHine SULFATE 2 MG/ML CARP IV PRN (14:32)
[2021-09-20] MEDS ORDERED: NALBUPHINE HCL INJ 10 MG/ML AMP IV PRN (14:32)
[2021-09-20] MEDS ORDERED: PROMETHAZINE HCL 6.25 MG in SODIUM CHLORIDE 0.9% 50 ML IV PRN (14:32)
[2021-09-20] MEDS ORDERED: LACTATED RINGER'S 500 ML IV PRN (14:32)
[2021-09-20] MEDS ORDERED: NALOXONE HCL 0.4 MG/1 ML VIAL/CARP IV PRN (14:32)
[2021-09-20] MEDS ORDERED: NALOXONE HCL 1 MG in SODIUM CHLORIDE 0.9% 1000ML 1,000 ML IV PRN (14:32)
[2021-09-20] MEDS ORDERED: ePHEDrine sulfate 50 MG/ML AMP IV PRN (14:32)
[2021-09-20] MEDS ORDERED: NALOXONE HCL 0.08 MG in SYRINGE 1.8 ML IV PRN (14:32)
--- NOTE | 2021-09-20 14:33 | Anesthesiology Progress Note ---
Date of Service September 20, 2021 Anesthesia Post Procedure Vital Signs Vital Signs: Temp Pulse Resp BP Pulse Ox 09/20/21 14:29 65 116/59 L 97 09/20/21 10:15 36.7 C 76 20 110/66 09/20/21 09:48 76 110/66 09/20/21 09:45 36.7 C 20 Transfer of Care Handoff Completed per policy Notes Mental Status: alert / awake / arousable Patient Amnestic to Procedure: No Nausea / Vomiting: adequately controlled Pain: adequately controlled Airway Patency, RR, SpO2: stable & adequate BP & HR: stable & adequate Hydration State: stable & adequate Neuraxial Anesthesia: was administered and sensory block is resolving Anesthetic Complications: no major complications apparent and Pt Satisfied with anesthetic care
[2021-09-20] MEDS ORDERED: NO NARCOTICS OR SEDATIVES SCH (14:45)
[2021-09-20] MEDS ORDERED: SODIUM CHLORIDE 0.9% 1000ML 1,000 ML IV SCH (14:45)
--- NOTE | 2021-09-20 15:01 | Post Operative Brief Note ---
PG Immediate Post Op with CF Date of Surgery September 20, 2021 Pre & Post Diagnosis Operation Date: 09/20/21 10:20 Pre-Op Diagnosis: Prior Caesarean Section;Desires Repeat;Unwanted fertility and multiparity Post-Op Diagnosis: Same; Delivery of a live female child at 1335 ( [facility] OR 3) I identified the patient and participated in the time-out.: Yes Procedure Operation Date: 09/20/21 10:20 Actual Procedures p Section (Delivery of Baby Through Abdominal Incision) with - Josey Gifford MD, FACOG s Bilateral Tubal Ligation - Josey Gifford MD, FACOG Surgeon Josey Gifford MD, FACOG [employer] Nichole Santos DO Estimated Blood Loss 500 Findings Consistent with Post-Op Diagnosis Specimens Specimen Description: A. Placenta-hold B. Cord Blood C. portions of left and right fallopin tubes Drains Stephens Catheter Anesthesia Type Spinal Complications none Disposition Accompanied Patient To Recovery: Yes
--- NOTE | 2021-09-20 15:13 | Operative Report ---
PG Post Operative Report Pre & Post Diagnosis Operation Date: 09/20/21 10:20 Pre-Op Diagnosis: Prior Caesarean Section;Desires Repeat;Unwanted fertility and multiparity Post-Op Diagnosis: Same; Delivery of a live female child at 1335 ( [facility] OR 3) I identified the patient and participated in the time-out.: Yes Procedure Operation Date: 09/20/21 10:20 Actual Procedures p Section (Delivery of Baby Through Abdominal Incision) with - Josey Gifford MD, FACOG s Bilateral Tubal Ligation - Josey Gifford MD, FACOG Surgeon Josey Gifford MD, FACOG Manager Billing Nichole Santos DO Estimated Blood Loss 500 Findings Consistent with Post-Op Diagnosis Specimens placenta Drains Stephens to straight drainage- clear urine at end of the case Anesthesia Type Spinal Complications none Disposition Accompanied Patient To Recovery: Yes Indications Patient is a 36-year-old 2 para 1-0-0-1 white female who presents at 39 weeks for repeat section. She is also requesting permanent sterilization because of unwanted fertility and multiparity. Description of Procedure At the patient received adequate subarachnoid block she was prepped and draped in usual sterile fashion a low transverse skin incision was made with a Scalpel and carried to the fascia with the same scalpel. The fascial incision was then extended with Solo scissors, the edges were then grasped and the underlying rectus muscles bluntly and sharply dissected off of the overlying fascia. The rectus muscles were divided on the midline with blunt and sharp dissection. The peritoneum was entered bluntly. The bladder was taken down off the anterior surface of the uterus and placed behind the bladder blade. The lower uterine segment was entered with a scalpel and extended transversely. Membranes were ruptured for clear fluid. The was delivered from the vertex presentation with moderate fundal pressure and vacuum assistance to bring the through the uterine incision. The infant was vigorous upon delivery and moving all 4 limbs. The cord was clamped and cut and the infant was handed off to Dr. Nicholas khan who was in attendance as bank vault custodian. The placenta was then manually removed and the uterus exteriorized and covered with a clean lap sponge. Uterine cavity was then explored and found to be free of any placental tissue but there were some retained membranes present that were removed with a ring forcep. The uterine incision was then closed in a running locking manner with 0 Monocryl. Hemostasis was noted to be excellent. the left loping tube was identified and followed to its fimbriated end, the midportion was grasped with a [place] clamp. A knuckle of tube was developed with a tie of 3-0 plain catgut followed by suture ligature at the same. Knuckle of tube was then removed and the remaining ends of the tube cauterized with the Bovie. The right fallopian tube was then identified followed to its fimbriated end, it was then grasped in the midportion with a Cosme clamp. Knuckle of tube was developed with a tie of 3-0 plain catgut followed by suture ligature of the same. The knuckle of tube was then removed and the ends of the remaining tube cauterized with the Bovie. After suctioning the posterior cul-de-sac for small amount of blood, the uterus was gently placed back in the abdominal cavity. The gutters were found to be free of any clot or fluid. The tubal sites were visualized and continued to have excellent hemostasis. The uterine incision was also hemostatic. The rectus muscle were brought together in the midline with individual stitches of 0 Monocryl. The fascia was closed in a running fashion with 0 Vicryl. After irrigating the adipose layer the skin edges were reapproximated using a 4-0 Vicryl in a subcuticular fashion. Mother and infant were in stable condition at the end of the procedure. I attest to the content of the Intraoperative Record and any orders documented therein. Any exceptions are noted below. OB Procedure Charges [id number] Add on Tubal for C/S
[2021-09-20] MEDS: KETOROLAC 30 MG/ML VIAL IV PRN (16:39)
[2021-09-20] MEDS: SIMETHICONE 80 MG CHEW PO SCH ×2 (16:42→20:25)
[2021-09-20] MEDS: OXYTOCIN 20 UNITS in LACTATED RINGER'S 1,000 ML IV SCH (17:02)
[2021-09-20] MEDS: DOCUSATE SODIUM 100 MG CAP PO SCH (20:25)
[2021-09-21] MEDS: KETOROLAC 30 MG/ML VIAL IV PRN (01:08)
[2021-09-21] MEDS: OXYTOCIN 20 UNITS in LACTATED RINGER'S 1,000 ML IV SCH (01:28)
[2021-09-21] MEDS ORDERED: LACTATED RINGER'S 500 ML IV ONE (04:43)
[2021-09-21 06:53] LABS: Basophils # (auto) 0.02 K/uL (0-0.2); Basophils % (auto) 0.2 %; Eosinophils # (auto) 0.09 K/uL (0-0.5); Eosinophils % (auto) 0.7 %; Hematocrit (blood only) 28.4 % (37-47); Hemoglobin 9.3 g/dL (12.0-16.0); Immature Granulocytes # (auto) 0.09 K/uL (0.00-0.02); Immature Granulocytes % (auto) 0.7 %; Lymphocytes # (auto) 1.93 K/uL (1.2-3.4); Lymphocytes % (auto) 14.7 %; Mean Corpuscular Hemoglobin 29.4 pg (25-34); Mean Corpuscular Hgb Conc 32.7 g/dL (32-36); Mean Corpuscular Volume 89.9 fL (80-100); Mean Platelet Volume 9.3 fL (7.4-10.4); Monocytes # (auto) 0.98 K/uL (0.11-0.59); Monocytes % (auto) 7.5 %; Neutrophils # (auto) 10.04 K/uL (1.4-6.5); Neutrophils % (auto) 76.2 %; Platelet Count 153 K/uL (130-400); RDW Coefficient of Variation 14.4 % (11.5-14.5); RDW Standard Deviation 47.3 fL (36.4-46.3); Red Blood Count 3.16 M/uL (4.2-5.4); White Blood Count 13.15 K/uL (4.8-10.8)
--- NOTE | 2021-09-21 07:21 | Obstetrical Progress Note ---
Date of Service <Sepideh Peter MD - Last Filed: 09/21/21 07:35> September 21, 2021 Assessment & Plan <Sepideh Peter MD - Last Filed: 09/21/21 07:35> (1) Encounter for care and examination after delivery: POD 1: stable, routine postoperative management * stay on L&D for monitoring of urine output, trial of ambulation * pain well controlled on analgesia * advance diet as tolerated * * reassess d/c readiness tomorrow <Elizabeth Santos DO - Last Filed: 09/21/21 08:25> (1) Encounter for care and examination after delivery: Subjective <Sepideh Peter MD - Last Filed: 09/21/21 07:35> Post Valentina is a 36 year old who is POD 1 following for , maternal intolerance of labor at 39.4 WGA. She reports feeling well overall this morning. Minimal pain well managed on analgesics. Voiding into Stephens. Has yet to try regular food or attempt ambulation. Unsure of lochia this morning. Currently . Review of Systems Denies fever, chills, sweats Denies shortness of breath, difficulty breathing, chest pain, palpitations, chest pressure. Denies breast pain. Denies dysuria. Denies headache or changes in vision. Physical Exam <Sepideh Peter MD - Last Filed: 09/21/21 07:35> General: Alert, oriented. No acute distress. Cardiac: Regular rate and rhythm, no murmurs/rubs/gallops. Respiratory: Clear to auscultation bilaterally a/p, no wheezes/rales/rhonchi. No increased work of breathing. Symmetrical chest rise. No respiratory distress. Abdomen: Soft, nontender, nondistended. Bowel sounds present. Uterus: Uterine fundus firm, palpable 1 cm below umbilicus. Surgical scar clean and healing well. Lower Extremities: No lower extremity edema or swelling. No deep calf pain. Virgilio's negative bilaterally. Results & Data ([facility]) <Sepideh Peter MD - Last Filed: 09/21/21 07:35> Vital Signs (Past 12 Hours) Vital Signs Temp Pulse Resp BP Pulse Ox 09/21/21 06:30 20 100 01/15/22 05:30 18 96 09/21/21 04:30 18 98 09/21/21 04:05 36.8 C 69 20 96/58 L 97 09/21/21 03:30 20 98 09/21/21 02:30 20 98 09/21/21 01:30 18 97 09/21/21 00:30 18 97 09/20/21 23:30 20 98 09/20/21 23:20 36.7 C 85 20 100/56 L 98 09/20/21 22:30 18 96 09/20/21 21:30 18 99 09/20/21 20:30 18 99 09/20/21 19:30 36.6 C 70 18 97/59 L 100 <Elizabeth Santos DO - Last Filed: 09/21/21 08:25> Co-Signing Physician Notes Resident Physician Supervision Note: I interviewed and examined the patient. Discussed with Dr. Peter and agree with findings and plan as documented in the note. Any exceptions or cla rifications are listed here: POD#1 doing well, continue routine care. Documented By: Elizabeth Santos DO Resident Activity Tracking <Sepideh Peter MD - Last Filed: 09/21/21 07:35> Resident Involvement: Resident Care Provided Care Provided: OB Delivery
[2021-09-21] MEDS: SIMETHICONE 80 MG CHEW PO SCH ×4 (07:58→19:42)
[2021-09-21] MEDS ORDERED: DC INTRASPINAL MORPHINE ONE (08:32)
[2021-09-21] MEDS ORDERED: MEPERIDINE HCL 50 MG/ML CARP IV PRN (08:32)
[2021-09-21] MEDS ORDERED: diphenhydrAMINE 50 MG/ML VIAL IV PRN (08:32)
[2021-09-21] MEDS ORDERED: KETOROLAC 30 MG/ML VIAL IV PRN (08:32)
[2021-09-21] MEDS ORDERED: PROMETHAZINE HCL 25 MG in SODIUM CHLORIDE 0.9% 50 ML IV PRN (08:32)
[2021-09-21] MEDS: FERROUS SULFATE 325 MG TAB PO SCH (09:07)
[2021-09-21] MEDS: DOCUSATE SODIUM 100 MG CAP PO SCH ×2 (09:07→19:42)
[2021-09-21] MEDS: PRENATAL VITAMIN 1 TAB PO SCH (09:08)
[2021-09-21] MEDS: IBUPROFEN 600 MG TAB PO PRN ×2 (14:35→19:42)
[2021-09-21] MEDS: oxyCODONE/ACETAMINOPHEN 5mg/325mg TAB PO PRN ×2 (14:35→19:42)
[2021-09-21] MEDS ORDERED: bisacodyL 5 MG TABEC PO SCH (20:00)
[2021-09-22] MEDS ORDERED: bisacodyL 10 MG SUPP PR PRN
[2021-09-22] MEDS: IBUPROFEN 600 MG TAB PO PRN ×2 (01:04→08:09)
[2021-09-22] MEDS: oxyCODONE/ACETAMINOPHEN 5mg/325mg TAB PO PRN ×2 (01:04→08:07)
[2021-09-22 06:38] LABS: Hematocrit (blood only) 27.6 % (37-47)
[2021-09-22] MEDS: SIMETHICONE 80 MG CHEW PO SCH (08:07)
[2021-09-22] MEDS: PRENATAL VITAMIN 1 TAB PO SCH (08:08)
[2021-09-22] MEDS: DOCUSATE SODIUM 100 MG CAP PO SCH (08:08)
[2021-09-22] MEDS: FERROUS SULFATE 325 MG TAB PO SCH (08:08)
--- NOTE | 2021-09-22 08:56 | Obstetrical Progress Note ---
Date of Service September 22, 2021 Assessment & Plan (1) Encounter for care and examination after delivery: satisfactory post exam wishes to be discharge scripts sent to pharmacy listed follow up in 6 weeks Subjective Ambulation: ambulating normally Voiding: no voiding problems Passing Gas:: Yes Diet Tolerance:: regular diet Lochia:: Small Feeding Type:: breast feeding pain well controlled with oral pain meds Review of Systems All systems reviewed & are unremarkable except as noted in HPI & below Physical Exam Constitutional WD/WN, vitals as above Gastrointestinal (Abdomen) incision intact and dry no cellulitis Genitourinary OB Exam Abdomen: + fundal height Fundus: + firm and + relation to umbilicus (1 below U) Results & Data ([facility]) Vital Signs (Past 12 Hours) Vital Signs Temp Pulse Resp BP Pulse Ox 09/22/21 07:45 97.9 F 65 20 104/66 98 09/21/21 23:00 98.2 F 80 16 98/61 L 98
--- NOTE | 2021-09-27 11:21 | Discharge Summary (DS) ---
DATE OF ADMISSION: 09/20/2021. DATE OF DISCHARGE: 09/22/2021. DISCHARGE DIAGNOSES: Intrauterine at 39 weeks with prior section, unwanted fertil ity, and multiparity. PRINCIPAL PROCEDURES: Repeat low transverse section and bilateral tubal ligation. HISTORY: The patient is a 36-year-old 2, para 1-0-0-1 white female who presents at 39 weeks for repeat section. She is requesting permanent sterilization during this procedure because of unwanted fertility. The repeat section and bilateral tubal ligation was done without co mplications. She had an uncomplicated postop course. She remained afebrile throughout her hospital stay. She was eating regular diet and ambulating and voiding without difficulty on her first postop day. Hemoglobin on admission was 11.3, hematocrit of 34.4. First postop day hemoglobin 9.3, hematocr it 28.4. Second postop day, hemoglobin 9.0, hematocrit of 27.6. She was sent home in good condition with prescriptions for Percocet 1 tablet p.o. q. 4 hours p.r.n. pain, Motrin 600 mg p.o. q. 6 hours p.r.n. pain. She is to call for a temperature of 101 degrees or higher, heavy vaginal bleeding, burn ing with urination, increased redness, drainage or pain into her incision, calf tenderness or any oth er concerns. She will be seen in the office in 6 weeks for a followup visit. Job ID: [id number]
== END 2021-09-22 10:15 | disposition home or self-care (01) | DRG 785 ==
LOC: EDSTATUS 07:30 → 4S1 09:31 → 4S2 17:35
PROC: M.PPTLD (2021-09-20 10:20)